=== PATIENT | male | born 1950 ===

== ENCOUNTER 2022-11-03 21:24 | Emergency (ER) | payer MEDICARE ==
--- OUTSIDE RECORDS SUMMARY | 2022-11-03 21:27 | XMS REPORT | Continuity of Care Document ---
:1950 Author Organization [facility] t Address [address] [place] [address]. [address] [place] [address] Care Team Providers Name Role Phone Pcp, Patient Does Not Have A Primary Care Physician [id number] MARY GOOD Attending Clinician Unavailable Mary Good MD Attending Clinician Doctor Unassigned, [place] Attending Clinician Unavailable MARY GOOD Admitting Clinician Unavailable Mary Good MD Admitting Clinician Payers Payer Name Policy Type Policy Number Effective Date Expiration Date S ource Problems Condition Condition Condition Status Onset Resolution Last Treating Co mments Source Name Details Category Date Date Treatment Clinician Date Perianal Perianal Disease Active Unive rs dermatitis dermatitis 8-10 it y of 00:00: [address] Prolapsed Prolapsed Disease Active Uni vers internal internal 6-01 [place], grade 3 s, grade 3 00 Me dical Branch Allergies, Adverse Reactions, Alerts Allergy Allergy Status Severity Reaction(s) Onset Inactive Treating Comm ents Source Name Type Date Date Clinician NO KNOWN Drug Active Univers ALLERGIE Class ity of S [facility] Social History Social Habit Start Date Stop Date Quantity Comments Source Gender identity Universit y of [facility] Sexual orientation Univer sity [facility] Alcohol intake 2022-10-30 2022-10-30 Lifetime University of 00:00:00 00:00:00 non-drinker [facility] (finding) [place] History of Social 2022-10-24 2022-10-24 Univers ity of function 00:00:00 00:00:00 [facility] Tobacco use and 2022-08-21 2022-08-21 Smokeless Universit y of exposure 00:00:00 00:00:00 tobacco non-user [facility] Sex Assigned At [birth year] Universit y of 00:00:00 00:00:00 [facility] Smoking Status Start Date Stop Date Source Never smoked tobacco [facility] Medications Ordered Filled Start Stop Current Ordering Indication Dosage Frequency Signature Comments Components Source Medication Medication Date Date Medication? Clinician (SIG) Name Name HYDROcodone 2022- No 1{tbl} 1 tablet, Univers -acetaminop 10-24 Oral, ity of hen (NORCO 16:45: 17:43 ONCE, 1 [place] 5) 5-325 mg 00 :00 dose, On Medi elsi tablet 1 Thu10/24/22 Branc h tablet at 1145, Routine, PACU HYDROcodone 2022- No 1{tbl} 1 tablet, Univers -acetaminop 10-24 Oral, ity of hen (NORCO 16:45: 17:43 ONCE, 1 Freddy as 5) 5-325 mg 00 :00 dose, On Medi elsi tablet 1 Thu10/24/22 Branc h tablet at 1145, Routine, PACU HYDROmorphO Yes .2mg 0.2 mg, Uni vers ne 8 Slow IV ity of (DILAUDID) 16:37: Push, [place] injection 20 Q5MIN PRN, Medi elsi 0.2 mg 10 doses, Branch Starting on Thu10/24/22 at 1137, Until Discontinu ed, Routine, Pain (scale 7-10), PACU
Us e approved by (Faculty): PACU USE -ANESTHESI A SERVICE-HY DROMORPHON E INJECTIONS FENTanyl PF Yes 25ug 25 mcg, Uni vers (SUBLIMAZE 10-24 Slow IV ity of (PF)) 16:37: Push, [place] injection 20 Q5MIN PRN, Medi elsi 25 mcg 4 doses, Branch Starting on Thu10/24/22 at 1137, Until Discontinu ed, Routine, Pain (scale 4-6), PACU ondansetron Yes 4mg 4 mg, Slow Univers (ZOFRAN 8- IV Push, ity of (PF)) 16:37: PRN, 1 [place] injection 4 20 dose, Medical mg Starting Branch on Thu10/24/22 at 1137, Until Discontinu ed, Routine, Nausea and Vomiting (N/V), PACU HYDROmorphO 2022- No .2mg 0.2 mg, [place] ne 10-24 Slow IV ity of (DILAUDID) 16:37: 21:32 Push, [place] injection 20 :57 Q5MIN PRN, Medi elsi 0.2 mg 10 doses, Branch Starting on Thu10/24/22 at 1137, Until Thu10/24/22 at 1632, Routine, Pain (scale 7-10), PACU
Us e approved by (Faculty): PACU USE -ANESTHESI A SERVICE-HY DROMORPHON E INJECTIONS FENTanyl PF 2022- No 25ug 25 mcg, [place] (SUBLIMAZE 10-24 Slow IV ity o f (PF)) 16:37: 21:32 Push, [place] injection 20 :57 Q5MIN PRN, Medi elsi 25 mcg 4 doses, Branch Starting on Thu10/24/22 at 1137, Until Thu10/24/22 at 1632, Routine, Pain (scale 4-6), PACU ondansetron 2022- No 4mg 4 mg, Slow Univers (ZOFRAN 10-24 IV Push, ity of (PF)) 16:37: 21:32 PRN, 1 [place] injection 4 20 :57 dose, Medical mg Starting Branch on Thu10/24/22 at 1137, Until Thu10/24/22 at 1632, Routine, Nausea and Vomiting (N/V), PACU lidocaine 2022-0 Yes PRN, Univers (XYLOCAINE) 10-24 Starting ity of 2 % jelly 16:08: on Fri [place] URO-JET 00 10/24/22 at [facility] 1108, Branch Until Discontinu ed, Routine, Intra-op lidocaine 2022-0 2023- No PRN, Univers (XYLOCAINE) 10-24 Starting ity of 2 % jelly 16:08: 21:32 on Fri [place] URO-JET 00 :57 10/24/22 at Medical 1108, Branch Until Thu10/24/22 at 1632, Routine, Intra-op bupivacaine 2023-0 Yes PRN, Univer s (preserv 8-04 Starting ity of free) 15:18: on Fri [place] (SENSORCAIN 00 10/24/22 at Med ical E MPF) 0.25 1018, Branch % (2.5 Intra-op mg/mL) 20 mL, BUPivacaine liposome (PF) (EXPAREL (PF)) 1.3 % (13.3 mg/mL) 266 mg bupivacaine 3-0 202- No PRN, Unive rs (preserv 8- 08-04 Starting ity of free) 15:18: 21:32 on Thu [place] (SENSORCAIN 00 :57 10/24/22 at Med ical E MPF) 0.25 1018, Branch % (2.5 Intra-op mg/mL) 20 mL, BUPivacaine liposome (PF) (EXPAREL (PF)) 1.3 % (13.3 mg/mL) 266 mg sodium 3-0 Yes PRN, Univers chloride 10-24 Starting ity of 0.9 % 15:12: on Thu [place] irrigation 00 10/24/22 at Medi elsi solution 1012, Branch Until Discontinu ed, Intra-op sodium 3-0 2022- No PRN, Univers chloride 10-24 Starting ity of 0.9 % 15:12: 21:32 on Thu [place] irrigation 00 :57 10/24/22 at Medi elsi solution 1012, Branch Until Thu10/24/22 at 1632, Intra-op LATANOPROST 2023-[address] in [place] OPHTHALMIC 8-04 each eye. ity of 14:32: [address] LATANOPROST 2023-[address] in [place] OPHTHALMIC 8-04 each eye. ity of 14:32: [address] LATANOPROST 2023-[address] in [place] OPHTHALMIC 8-04 each eye. ity of 14:32: [address] LATANOPROST 2023-[address] in [place] OPHTHALMIC 8-04 each eye. ity of 14:32: [address] LATANOPROST 2023-[address] in [place] OPHTHALMIC 8-04 each eye. ity of 14:32: [place] 57 Medical Branch lactated 2022- No 1000[facility] at [facility] 10-24 08-04 mL/hr, ity of infusion 13:30: 13:36 1,000 mL, Fred[place] as 1,000 mL 00 :00 IV Medical Infusion, Branch ONCE, 1 dose, On Thu10/24/22 at 0830, Routine, DSU Pre-op lactated 2022-0 2022- No 1000mL at 42 [facility] rs ringers IV 10-24-04 mL/hr, ity of infusion 13:30: 13:36 1,000 mL, [place] 1,000 mL 00 :00 IV Medical Infusion, Branch ONCE, 1 dose, On Thu10/24/22 at 0830, Routine, DSU Pre-op celecoxib 2022- No 200mg 200 mg, Uni vers (CELEBREX) 10-24 Oral, O.R. it y of capsule 200 13:21: 13:32 [place] mg 10 :00 ONCE, 1 Medical dose, Branch Starting on Thu10/24/22 at 0821, Until Thu10/24/22 at 0832, Routine, Pain, DSU Pre-op gabapentin 2022- No 600mg 600 mg, [place] (NEURONTIN) 10-24 Oral, O.R. i ty of capsule 600 13:21: 13:32 [place] 10 :00 ONCE, 1 Medical dose, Branch Starting on Thu10/24/22 at 0821, Until Thu10/24/22 at 0832, Routine, Surgery/Pr ocedure, DSU Pre-op acetaminoph 2022- No 1000mg 1,000 mg, Univers en 10-24 Oral, O.R. ity of (TYLENOL) 13:21: 13:32 [place] tablet 10 :00 ONCE, 1 Medical 1,000 mg dose, Branch Starting on Thu10/24/22 at 0821, Until Thu10/24/22 at 0832, Routine, Surgery / Procedure, DSU Pre-op celecoxib 2022- No 200mg 200 mg, Uni vers (CELEBREX) 10-24 Oral, O.R. it y of capsule 200 13:21: 13:32 [place] 10 :00 ONCE, 1 Medical dose, Branch Starting on Thu10/24/22 at 0821, Until Thu10/24/22 at 0832, Routine, Pain, DSU Pre-op gabapentin 2022- No 600mg 600 mg, [place] (NEURONTIN) 10-24 Oral, O.R. i ty of capsule 600 13:21: 13:32 [place] 10 :00 ONCE, 1 Medical dose, Branch Starting on Thu10/24/22 at 0821, Until Thu10/24/22 at 0832, Routine, Surgery/Pr ocedure, DSU Pre-op acetaminoph 2022- No 1000mg 1,000 mg, Univers en 10-24 Oral, O.R. ity of (TYLENOL) 13:21: 13:32 [place] tablet 10 :00 ONCE, 1 Medical 1,000 mg dose, Branch Starting on Thu10/24/22 at 0821, Until Thu10/24/22 at 0832, Routine, Surgery / Procedure, DSU Pre-op polyethylen 2022-0 Yes [id number] Take 1 Univers e glycol 8-04 packet ity of 3350 00:00: dissolved [place] (MIRALAX) 00 in 4-8 Medical 17 gram ounces Branch powder beverage. traMADoL 50 0 Yes [id number] 50mg Take 1 Univ ers mg tablet 8-04 tablet by ity o f 00:00: mouth [place] 00 every 8 Medical (eight) Branch hours as needed (pain) for up to 3 doses. Indication s: acute pain ibuprofen 2022-0 Yes [id number] 600mg Take 1 Univers 600 mg 8-04 tablet by ity of tablet 00:00: mouth [place] 00 every 6 Medical (six) Branch hours. polyethylen 2022-0 Yes [id number] Take 1 Univers e glycol 8-04 packet ity of 3350 00:00: dissolved [place] (MIRALAX) 00 in 4-8 Medical 17 gram ounces Branch powder beverage. ibuprofen 2022-0 Yes [id number] 600mg Take 1 Univers 600 mg 8-04 tablet by ity of tablet 00:00: mouth [place] 00 every 6 Medical (six) Branch hours. polyethylen 2022-0 Yes [id number] Take 1 Univers e glycol 8-04 packet ity of 3350 00:00: dissolved [place] (MIRALAX) 00 in 4-8 Medical 17 gram ounces Branch powder beverage. ibuprofen 2023-0 Yes [id number] 600mg Take 1 Univers 600 mg 8-04 tablet by ity of tablet 00:00: mouth [place] 00 every 6 Medical (six) Branch hours. polyethylen 3-0 Yes [id number] Take 1 Univers e glycol 8-04 packet ity of 3350 00:00: dissolved [place] (MIRALAX) 00 in 4-8 Medical 17 gram ounces Branch powder beverage. traMADoL 50 3-0 Yes [id number] 50mg Take 1 Univ ers mg tablet 8-04 tablet by ity o f 00:00: mouth [place] 00 every 8 Medical (eight) Branch hours as needed (pain) for up to 3 doses. Indication s: acute pain ibuprofen 3-0 Yes [id number] 600mg Take 1 Univers 600 mg 8-04 tablet by ity of tablet 00:00: mouth [place] 00 every 6 Medical (six) Branch hours. polyethylen 3-0 Yes [id number] Take 1 Univers e glycol 8-04 packet ity of 3350 00:00: dissolved [place] (MIRALAX) 00 in 4-8 Medical 17 gram ounces Branch powder beverage. traMADoL 50 3-0 Yes [id number] 50mg Take 1 Univ ers mg tablet 8-04 tablet by ity o f 00:00: mouth [place] 00 every 8 Medical (eight) Branch hours as needed (pain) for up to 3 doses. Indication s: acute pain ibuprofen 2023-0 Yes [id number] 600mg Take 1 Univers 600 mg 8-04 tablet by ity of tablet 00:00: mouth [place] 00 every 6 Medical (six) Branch hours. acetaminoph 2023-0 2023- Yes [id number] 975mg Take 3 Univers en 325 mg 8-04 08-20 tablets by ity of tablet 00:00: 04:59 mouth [place] 00 :00 every 8 Medical (eight) Branch hours for 15 days. acetaminoph 2023-0 2023- Yes [id number] 975mg Take 3 Univers en 325 mg 8-04 08-20 tablets by ity of tablet 00:00: 04:59 mouth [place] 00 :00 every 8 Medical (eight) Branch hours for 15 days. acetaminoph 2022-0 202- Yes [id number] 975mg Take 3 Univers en 325 mg 8 08-20 tablets by ity of tablet 00:00: 04:59 mouth [place] 00 :00 every 8 Medical (eight) Branch hours for 15 days. acetaminoph 3-0 2023- Yes [id number] 975mg Take 3 Univers en 325 mg 8 08-20 tablets by ity of tablet 00:00: 04:59 mouth [place] 00 :00 every 8 Medical (eight) Branch hours for 15 days. acetaminoph 2022-0 2022- Yes [id number] 975mg Take 3 Univers en 325 mg 8 08-20 tablets by ity of tablet 00:00: 04:59 mouth [place] 00 :00 every 8 Medical (eight) Branch hours for 15 days. traMADoL 50 2022-0 2023- No [id number] 50mg Take 1 Uni vers mg tablet 10-24 08-10 tablet by ity of 00:00: 00:00 mouth [place] 00 :00 every 8 Medical (eight) Branch hours as needed (pain) for up to 3 doses. Indication s: acute pain traMADoL 50 3-0 2023- No [id number] 50mg Take 1 Uni vers mg tablet 10-24 08-10 tablet by ity of 00:00: 00:00 mouth [place] 00 :00 every 8 Medical (eight) Branch hours as needed (pain) for up to 3 doses. Indication s: acute pain LATANOPROST 2022-[address] in [place] OPHTHALMIC 6-01 each eye. ity of 10:04: [place] [address] Medical Branch LATANOPROST 3-[address] in [place] OPHTHALMIC 6-01 each eye. ity of 10:04: [address] Branch LATANOPROST 2023-[address] in [place] OPHTHALMIC 6-01 each eye. ity of 10:04: [address] Branch LATANOPROST 2023-[address] in [place] OPHTHALMIC 6-01 each eye. ity of 10:04: [place] [address] Medical Branch LATANOPROST 2023-[address] in [place] OPHTHALMIC 6-01 each eye. ity of 10:04: [address] Vital Signs Vital Name Observation Time Observation Value Comments Source Systolic blood 2022-10-30 13:13:00 151 mm[Hg] Univer sity of pressure [place] [facility] Diastolic blood 2022-10-30 13:13:00 86 mm[Hg] Unive rsity of pressure [place] [facility] Heart rate 2022-10-30 13:13:00 67 /min Universi ty of [place] [facility] Body temperature 2022-10-30 13:12:00 36.56 Noemi Univ ersity of [facility] Branch Respiratory rate 2022-10-30 13:12:00 18 /min Univ ersity of [place] [facility] Body height 2022-10-30 13:12:00 170.2 cm Universi ty of [place] [facility] Body weight 2022-10-30 13:12:00 70.761 kg Universi ty of [place] [facility] BMI 2022-10-30 13:12:00 24.43 kg/m2 Universi ty of [place] [facility] [place] Oxygen saturation in 2022-10-30 13:12:00 97 /min University of Arterial blood by [facility] Pulse oximetry Branch Heart rate 2022-10-24 18:30:00 89 /min Universi ty of [place] [facility] Oxygen saturation in 2022-10-24 18:30:00 96 /min University of Arterial blood by [facility] Pulse oximetry Branch Respiratory rate 2022-10-24 18:25:00 22 /min Univ ersity of [place] [facility] Systolic blood 2022-10-24 18:20:00 152 mm[Hg] Univer sity of pressure [place] [facility] Diastolic blood 2022-10-24 18:20:00 77 mm[Hg] Unive rsity of pressure [place] [facility] Body temperature 2022-10-24 16:30:00 36.11 Noemi Univ ersity of [place] [facility] Body height 2022-10-21 14:45:00 170.2 cm Universi ty of [place] [facility] Body weight 2022-10-21 14:45:00 70.761 kg Universi ty of [place] [facility] BMI 2022-10-21 14:45:00 24.43 kg/m2 Universi ty of [place] [facility] Systolic blood 2022-10-24 13:27:00 135 mm[Hg] Univer sity of pressure [place] [facility] Diastolic blood 2022-10-24 13:27:00 89 mm[Hg] Unive rsity of pressure [place] [facility] Heart rate 2022-10-24 13:27:00 69 /min Universi ty of [place] [facility] Body temperature 2022-10-24 13:27:00 36.67 Noemi Univ ersity of [place] [facility] Respiratory rate 2022-10-24 13:27:00 18 /min Univ ersity of [place] [facility] Oxygen saturation in 2022-10-24 13:27:00 97 /min University of Arterial blood by [facility] Pulse oximetry Branch BMI 2022-10-21 14:45:00 24.43 kg/m2 Universi ty of [place] [facility] Body height 2022-10-21 14:45:00 170.2 cm Universi ty of [place] [facility] Body weight 2022-10-21 14:45:00 70.761 kg Universi ty of [place] [facility] Systolic blood 2022-10-16 13:09:00 137 mm[Hg] Univer sity of pressure [facility] Branch Diastolic blood 2022-10-16 13:09:00 84 mm[Hg] Unive rsity of pressure [place] [facility] Heart rate 2022-10-16 13:09:00 61 /min Universi ty of [place] [facility] Body temperature 2022-10-16 13:08:00 36.56 Noemi Univ ersity of [place] [facility] Respiratory rate 2022-10-16 13:08:00 18 /min Univ ersity of [place] [facility] Body weight 2022-10-16 13:08:00 70.761 kg Universi ty of [place] [facility] BMI 2022-10-16 13:08:00 24.43 kg/m2 Universi ty of [place] [facility] Oxygen saturation in 2022-10-16 13:08:00 99 /min University of Arterial blood by [facility] Pulse oximetry Branch Procedures Procedure Date / Time Performing Clinician Source Performed DOPPLER GUIDED 2022-10-24 14:18:00 Mary Good [place] HEMORRHOIDPEXY Medical Branch DAY SURGERY - ADC 2022-10-24 05:01:00 Doctor Unassigned, [facility] [place] Medical Branch Encounters Start End Encounter Admission Attending Care Care Encounter Source Date/Time Date/Time Type Type Clinicians Facility Department ID 2022-10-30 2022-10-30 Office KALEY Good TERESO [id number] Univers 08:15:00 08:43:02 Visit Mary GARCIA [id number] it y of [place] [id number] [facility] 408 Branch 2022-10-30 2022-10-30 [facility] [id number] Univers 08:15:00 08:43:[address] [facility] 2022-10-24 2022-10-24 [facility] [id number] Univers 08:15:00 13:40:[address] [facility] 2022-10-24 2022-10-24 [facility] [id number] Univers 08:15:00 13:40:00 Encounter Mary BARON [id number] ity [place] [id number] [facility] 071 Branch 2022-10-24 2022-10-24 Surgery [facility] [id number] Univers 09:15:00 11:15:00 Mary BARON [id number] i ty [place] [id number] [facility] 020 Branch 2022-10-24 2022-10-24 Orders Doctor ORR [id number] Univers 00:00:00 00:00:00 Only Unassigned, ANASTACIO [id number] ity of [place] [facility] 4.2.7.2.686 [place] as [id number] [facility] 009 Branch 2022-10-16 2022-10-16 [facility] [id number] Univers 08:15:00 09:05:[address] [facility] 2022-10-16 2022-10-16 Office [facility] [id number] Univers 08:15:00 09:05:28 Visit Mary JOSE [id number] it y of [id number] [id number] [address] 2022-10-07 2022-10-07 Telephone Dmitry [facility] [id number] Univers 00:00:00 00:00:00 Mary GARCIA [id number] it y of [id number] [id number] [address] 2022-08-26 2022-08-26 Telephone Dmitry [facility] [[email or web address]] [id number] Univers 00:00:00 00:00:00 Mary DRAPER [id number] i ty [place] [id number] [id number] [place] dical [address] 2022-08-21 2022-08-21 Outpatient R DMITRY [facility] [id number] Univers 10:15:00 10:51:09 MARY benson of [facility] Results This patient has no known results. History and Physical Notes Date/Time Note Provider Source 2022-10-24 08:28:27-00:00 Formatting of this note migh t be different from the original. [facility] [[email or web address] - [facility] Updated H&P: 10/24/2022 Pt was seen and evaluated in holding with Dr. Good. There have been no changes to pt's history, physical exam or ROS since patient was seen in clinic on 10/16/[address] Good. Please see below for full details of H&P. - NPO since midnight - Risks, benefits and altern atives discussed with patient and he wished to proceed with procedure. - Consent signed. - To OR today for THD procedure Mehreen Chacon MD General Surgery, PGY-2 Electronically signed by Mary Good MD at 9:16 AM CDT Associated attestation - Mary Good MD - 06/2022 9:16 AM CDT ATTESTATION: After reviewing the details of the history, exam, and data with the resident, I personally examined the patient with Dr. Chacon. I agree with the resident's note as written. I actively participated in th e decision making process. Vinny lópez see the resident's note for additional details. All risks benefits and alter natives discussed with patient, including the risk of bleeding, infection, damage to surrounding tissues and need for more invasive measures to address these complications, and he is amenable to proceed with procedure. Mary Good MD 10/24/2022 9:16 AM Colon and Rectal Surgery Source Note - Mary Good MD - 10/16/2022 8:1 5 AM CDT Formatting of this note is different from the or iginal. COLORECTAL SURGERY HISTORY AND PHYSICAL NOTE REASON FOR REFERRAL: hemorrhoidal bleeding Cc: Chief Complaint Patient presents with F/U SUBJECTIVE: Nadia Hogue is a 72 year old ma bernadine. PMH non contributory. 09/2022: Mr Hogue is here with i mprovement in hemorrhoidal bleeding and prolapse after a 3 week HCT suppository treatment. However, per , he is still randomly bleeding and straining his clothes and furn iture. He is still wearing p ads. He would like to escalate hemorrhoidal bleeding management given suppositories are extremely expensive and not covered by insurance, so repeated treatments are not an option. 08/2022: Here for rectal bleeding. Bi weekly bleeding, bright blood per rectum, not associated with significant pain, but has h/o intermittent muscle spasms. Sitz baths helped relief spasms. This occur mainly at night. Infrequent in nautre. Does not report frequent constipation, but will intermittently have frequent bowel movements and frequent wiping will lead to bleeding. Has 3-5 soft Bms per day. Reports occ asional prolapsing rectal ti ssue that he has to push back in. Reports low fiber diet. Does not consume high amount of water, drinks coffee and Dr. Pepper. Last colonoscopy: 2021- patient reported benign polyps - does not have report Fam or personal h/o CRC: none Allergies Nadia has No Known Allergies. Medications Outpatient Medications Prior to Visit Medication Sig Dispense Refill LATANOPROST OPHTHALMIC Place in each eye. No facility-administered medications prior to vi sit. Histories No past medical history on file. Past Surgical History: Procedure Laterality Date PROSTATE SURGERY Social History Socioeconomic History Marital status: Tobacco Use Smoking status: Never Smokeless tobacco: Never Substance and Sexual Activity Alcohol use: Never Drug use: Never No family history on file. Review of Systems Review of Systems Constitutional: Negative. HENT: Negative. Eyes: Negative. Respiratory: Negative. Cardiovascular: Negative. Gastrointestinal: As above Genitourinary: Negative. Musculoskeletal: Negative. Skin: Negative. Neurological: Negative. Psychiatric/Behavioral: Negative. Endocrine: Negative Physical Exam BP 137/84 | Pulse 61 | Temp 36.6 ?C (97.8 ?F) | Resp 18 | Wt 70.8 kg (156 lb) | SpO2 99% | BMI 24.43 kg/m? Physical Exam Vitals signs reviewed. Constitutional: Appearance: Normal appearance. Cardiovascular: Rate and Rhythm: Normal rate. Pulmonary: Effort: Pulmonary effort is normal. Abdominal: General: Abdomen is flat. Musculoskeletal: Normal range of motion. Skin:General: Skin is warm and dry. Digital Rectal Exam and Anoscopy 08/2022 Perineal exam:normal Perineal skin: hemorrhoids, small, right posteri or, non thrombosed Anal wink: present Digital rectal exam: no fiss ures, normal anal sphincter tone, and prostate firm, nontender, without nodules or enlargement and large internal hemorrhoids, left lateral prolapsing Rectocele : absent Stenosis : absent Anoscopy: COLORECTAL ANOSCOPY: Left Lateral Inte rnal Hemorrhoid: grade III Mass: No masses Assessment/Plan Nadia Hogue is a 72 yea r old male who presented for prolapsing Grade 3 left lateral internal hemorrhoid associated with bleeding. Has had mild improvement with HCT suppository, but would like to pr oceed with THD for definitive elimination of ble eding issues. I explained the THD procedur e to the patient, including using a doppler to guide our hemorrhoidal vessel ligation and the use of a pexy suture to return the mucosa to its place in the anorectal canal. A ll risks benefits and altern atives discussed with patient, including the risk of bleeding, infection, damage to surrounding tissues and need for more invasive measures to address these complications. I explained that pressure like discomfort for +/- 1 weeks is the most common side effect of this procedure, as well as my recommendation to stay on Miralax post op for 1-2 weeks to avoid straining. I expl ained there is a 10% recurre nce risk at 1 year post op given we are not cutting hemorrhoids out. He is amenable to proceed with procedure. I spent 25 minutes of time, independent of resident or medical student time spent during the entirety of this appointment, dedicated to: PreCharting (eg, review of tests, notes, etc.), Counseling and educating the patient/family/caregiver, and Documenting clinical information in the electronic or other health record. Mary Good MD 10/16/2022 10:28 AM Colon and Rectal Surgery Electronically signed by Mary Good MD at 10:28 AM CDT Notes Date/Time Note Provider Source 2022-10-23 Formatting of this note might be differe nt from the original. Alisson Maher RN [facility] 12:28:25-00:00 Arrival time given for 3 at 0800. No reported change in health condition since pre-op screening call. No significant medical visits noted in chart review notes or reported by patient. Electronically signed by Alisson Maher RN a t 10/23/2022 12:28 PM CDT 2022-10-21 [facility] 09:57:19-00:00 Images from the original note were not included. Your upcoming procedure is a t [facility] on 10/24/22. The address is [address] [place] [address], [id number]The nursing staff at [facility] will call you the workday before your procedure to let you kn ow what time to arrive. When you arrive, please go inside and sign in at the desk. Please note: You may not tra shania home alone after your procedure and that includes in a taxi or by bus. We must speak to your Responsible Adult (who will be picking you up) the morning of your procedure, before the start of your pr ocedure. This person must be an adult over the age of 18 years of age. Maintain a clear liquid diet the entire day before your procedure. Do not drink anything containing red, blue, or purple dyes. Follow the instructions of your bowel prep as directed by you physician. Yo u may also take your medicat ions the morning of your procedure with a sip of water as directed by physician. Anticoagulants will be per p hysician Guidance. Medication Note(s)/Instructions: N/A Both patient and person acco mpanying and/or picking patient up must be able to wear a mask and be without symptoms of COVID 19. Pending screening, a COVID t est may be required. If a patient tests positive, their cases are cancelled and/or rescheduled. COVID NOTE: Denies COVID symptoms or exposure, no testing required. Additional questions, concerns, requests: Patient verbalized understan ding of pre-op instructions and voiced no further questions at this time. "
[2022-11-03] MEDS ORDERED: MORPHINE 4 MG/ML SYR ONE (22:13)
[2022-11-03] MEDS ORDERED: Ringers Lactate 1,000 ML IV ONE (22:13)
[2022-11-03] MEDS ORDERED: ONDANSETRON 4 MG/2 ML VIAL ONE (22:13)
[2022-11-03 22:22] LABS: Absolute Lymphocytes (CBC) 2.1 K/uL (0.7-4.9); Hematocrit 36.3 % (39.6-49.0); Lymphocytes % 29.2 % (15.3-44.8); MCV 93.3 fL (80-100); MPV 7.8 fL (7.6-11.3); Platelets 290 thou/uL (152-406)
[2022-11-03 22:36] LABS: ALT/SGPT 21 U/L (16-61); AST/SGOT 13 U/L (15-37); Albumin 3.1 g/dL (3.4-5.0); Alkaline Phosphatase 85 U/L (45-117); BUN Blood Urea Nitrogen 21 mg/dL (7-18); Bicarbonate 28 mEq/L (21-32); Bilirubin Total 0.2 mg/dL (0.2-1.0); Glomerular Filtration Rate 49 ml/min (=/>90); Glucose Level 111 mg/dL (74-106); Potassium 4.1 mEq/L (3.5-5.1); Protein, Total 6.4 g/dL (6.4-8.2); Sodium Level 138 mEq/L (136-145)
[2022-11-03 22:49] LABS: Bilirubin Direct < 0.1 mg/dL (0-0.2); Bilirubin Indirect, Calculated ND mg/dL (0.2-0.8)
--- NOTE | 2022-11-03 23:35 | ER ---
Nurse's Notes [facility] [place], [place] Name: Madhu Goncalves Age: 72 yrs Sex: Male : 1950 Arrival Date: 11/03/2022 Time: 21:24 Bed 7 Private MD: Diagnosis: Acute rectal bleeding, bleeding from the site of hemorrhoidectomy Presentation: 11/03 21:29 Chief complaint: Patient states: rectal bleeding began 45 minutes [employer] recent hemorrhoid kl surgery {10/17} reports spontaneous bleeding this pm approx 1 cup. Coronavirus screen: Vaccine status: Patient reports receiving the 2nd dose of the covid vaccine. Ebola Screen: Patient negative for fever greater than or equal to 101.5 degrees Fahrenheit, and additional compatible Ebola Virus Disease symptoms. Initial Sepsis Screen: Does the patient meet any 2 criteria? No. Patient's initial sepsis screen is negative. Does the patient have a suspected source of infection? No. Patient's initial sepsis screen is negative. Risk Assessment: Do you want to hurt yourself or someone else? Patient reports no desire to harm self or others. 21:29 [facility]29 Acuity: KALYAN 3 kl Triage Assessment: 21:32 General: Appears uncomfortable, Behavior is calm, cooperative. Pain: Complains of pain kl in gluteal cleft Pain currently is 3 out of 10 on a pain scale. EENT: No deficits noted. Neuro: No deficits noted. Cardiovascular: No deficits noted. Respiratory: No deficits noted. GI: No deficits noted. No signs and/or symptoms were reported involving the gastrointestinal system. : No deficits noted. No signs and/or symptoms were reported regarding the genitourinary system. Derm: bleeding from hemorrhoid surgical site. Historical: - Allergies: 21:32 No Known Allergies; kl - Home Meds: 21:32 None [Active]; kl - PMHx: 21:32 None; kl - PSHx: 21:32 Hemorrhoidectomy; kl - Immunization history:: Adult Immunizations up to date. - Social history:: Smoking status: Patient denies any tobacco usage or history of. - Family history:: not pertinent. Screenin:50 [facility] ED Fall Risk Assessment (Adult) History of falling in the last 3 months, kl including since admission No falls in past 3 months (0 pts) Confusion or Disorientation No (0 pts) Intoxicated or Sedated No (0 pts) Impaired Gait No (0 pts) Mobility Assist Device Used No (0 pt) Altered Elimination No (0 pt) Score/Fall Risk Level 0 - 2 = Low Risk Oriented to surroundings, Maintained a safe environment. Abuse screen: Denies threats or abuse. Nutritional screening: No deficits noted. Tuberculosis screening: No symptoms or risk factors identified. Assessment: 21:50 Reassessment: see triage assessment. 22:10 Reassessment: rectal bleeding noted 4x4,s placed between buttocks adult brief in place kl tolerated well. 22:29 Reassessment: [facility] Transfer Center called, Dr. Mckeon consulted with Dr. Nunez and vc1 has agreed to accept the pt. Waiting on acceptance from Internalist. Vital Signs: 21:29 BP 140 / 95; Pulse 80; Resp 18; Temp 98.7(O); Pulse Ox 97% on R/A; Weight 70.76 kg (M); kl Height 5 ft. 7 in. ; Pain 3/10; 21:53 BP 137 / 86; Pulse Ox 96% on R/A; kl 11/04 00:07 BP 137 / 79; Pulse 69; Resp 16; Pulse Ox 98% ; 11/03 21:29 Body Mass Index 24.43 (70.76 kg, 170.18 cm) 11/03 21:29 Pain Scale: Adult ED Course: 11/03 21:27 Patient arrived in ED. rv1 21:32 Triage completed. kl 21:35 Shan Nunez MD is Attending Physician. sp4 21:49 No provider procedures requiring assistance completed. Inserted saline lock: 20 gauge kl in right antecubital area, using aseptic technique. Blood collected. 21:49 Basic Metabolic Panel Sent. kl 21:49 CBC with Diff Sent. kl 21:49 LFT's Sent. kl 21:49 PT-INR Sent. kl 21:51 Patient has correct armband on for positive identification. Bed in low position. Call kl light in reach. Side rails up X2. Door closed. Noise minimized. Warm blanket given. 22:06 Initiated transfer with Manny at [facility]. rv1 23:24 Pt accepted to [facility] by Dr. Wakefield. rv1 23:25 CT Abd/Pelvis - IV Contrast Only In Process Unspecified. EDMS 23:57 SARS RAPID Sent. 11/04 00:07 Patient transferred, IV remains in place. kl Administered Medications: 11/03 22:05 Drug: morphine IVP or IV 4 mg Route: IVP; Infused Over: 4 mins; Site: right antecubital; 22:41 Follow up: Response: No adverse reaction; Marked relief of symptoms kl 22:11 Drug: Ondansetron IVP 4 mg Route: IVP; Site: right antecubital; 22:41 Follow up: Response: No adverse reaction; Marked relief of symptoms kl 22:11 Drug: Lactated Ringers Solution IV 1000 ml Route: IV; Rate: 150 ml/hr; Site: right kl antecubital; 23:50 Drug: Ondansetron IVP 4 mg Route: IVP; Site: right antecubital; 11/04 00:06 Follow up: Response: No adverse reaction; Marked relief of symptoms 11/03 23:56 Drug: morphine IVP or IV 4 mg Route: IVP; Infused Over: 4 mins; Site: right antecubital; 11/04 00:06 Follow up: Response: No adverse reaction; Marked relief of symptoms Medication: 11/03 21:52 VIS not applicable for this client. Outcome: 23:35 ER care complete, transfer ordered by MD. solorio 11/04 00:07 Transferred by ground EMS to [facility], Transfer form kl completed. X-rays sent w/ patient. Condition: stable Discharge instructions given to patient, family, Instructed on the need for transfer, Demonstrated understanding of instructions. 00:08 Patient left the ED. Signatures: Dispatcher [employer] EDMS Yanira Saldaña RN RN kl Calcote, Vanessa, RN RN 1 Nia Mcneil Sergey, MD MD sp4
--- NOTE | 2022-11-03 23:35 | EDPHYS ---
Physician Documentation [facility] Name: Madhu Goncalves Age: 72 yrs Sex: Male : 1950 Arrival Date: 11/03/2022 Time: 21:24 Bed 7 Private MD: ED Physician Shan Nunez HPI: 11/03 21:36 This 72 yrs old White Male presents to ER via EMS with complaints of Bleeding sp4 hemorrhoids.. 21:36 Very pleasant 72-year-old male with history of hemorrhoidectomy at [facility] in [place] on sp4 10/16/2022 presents with EMS for acute bleeding from the anus starting today while he went to the bathroom. Patient reports active bleeding. He is wearing depends. Dr. Dmitry SALAS at [phone] is a colorectal surgeon who performed the surgery. . Historical: - Allergies: 21:32 No Known Allergies; kl - Home Meds: 21:32 None [Active]; kl - PMHx: 21:32 None; kl - PSHx: 21:32 Hemorrhoidectomy; kl - Immunization history:: Adult Immunizations up to date. - Social history:: Smoking status: Patient denies any tobacco usage or history of. - Family history:: not pertinent. ROS: 23:24 Constitutional: Negative for fever, chills, and weight loss, Abdomen/GI: Negative for sp4 abdominal pain, nausea, vomiting, diarrhea, and constipation, positive for anal bleeding 23:24 All other systems are negative. Exam: 23:24 Constitutional: This is a well developed, well nourished patient who is awake, alert, sp4 and in no acute distress. Head/Face: Normocephalic, atraumatic. Eyes: Pupils equal round and reactive to light, extra-ocular motions intact. Lids and lashes normal. Conjunctiva and sclera are not injected. Cornea within normal limits. Periorbital areas with no swelling, redness, or edema. ENT: Nares patent. No nasal discharge, no septal abnormalities noted. Tympanic membranes are normal and external auditory canals are clear. Oropharynx with no redness, swelling, or masses, exudates, or evidence of obstruction, uvula midline. Mucous membranes moist. Neck: Trachea midline, no thyromegaly or masses palpated, and no cervical lymphadenopathy. Supple, full range of motion without nuchal rigidity, or vertebral point tenderness. Chest/axilla: Normal chest wall appearance and motion. Nontender with no deformity. No lesions are appreciated. Cardiovascular: Regular rate and rhythm with a normal S1 and S2. No gallops, murmurs, or rubs. Normal PMI, no JVD. No pulse deficits. Respiratory: Lungs have equal breath sounds bilaterally, clear to auscultation and percussion. No rales, rhonchi or wheezes noted. No increased work of breathing, no retractions or nasal flaring. Abdomen/GI: Soft, non-tender, with normal bowel sounds. No distension or tympany. No guarding or rebound. No evidence of tenderness throughout. Digital rectal exam reveals active moderate bleeding coming from rectum, no anal fissures, no anal fistulas, no signs of external hemorrhoid, no sign of rectal mass, there is bright red bleeding that is active. There is anal tenderness without sign of abscess. Back: No spinal tenderness. No costovertebral tenderness. Male : Normal genitalia with no discharge or lesions. Skin: Warm, dry with normal turgor. Normal color with no rashes, no lesions, and no evidence of cellulitis. MS/ Extremity: Pulses equal, no cyanosis. Neurovascular intact. Full, normal range of motion. Neuro: Awake and alert, GCS 15, oriented to person, place, time, and situation. Cranial nerves II-XII grossly intact. Motor strength 5/5 in all extremities. Sensory grossly intact. Psych: Awake, alert, with orientation to person, place and time. Behavior, mood, and affect are within normal limits Vital Signs: 21:29 BP 140 / 95; Pulse 80; Resp 18; Temp 98.7(O); Pulse Ox 97% on R/A; Weight 70.76 kg (M); Height 5 ft. 7 in. ; Pain 3/10; 21:53 BP 137 / 86; Pulse Ox 96% on R/A; 11/04 00:07 BP 137 / 79; Pulse 69; Resp 16; Pulse Ox 98% ; 11/03 21:29 Body Mass Index 24.43 (70.76 kg, 170.18 cm) 11/03 21:29 Pain Scale: Adult MDM: 11/03 22:03 Patient medically screened. sp4 23:24 Differential Diagnosis Bright red bleeding, colonic bleeding, diverticular bleed, sp4 hemorrhoidal bleed, internal hemorrhoid. Data reviewed: vital signs. Consideration of Admission/Observation Escalation of care including admission/observation considered. Management of patient was discussed with the following: Associate Professor Of Art: General surgeon at [facility] Dr. Mckeon, also discussed with general surgeon at [facility] in [place] Dr. Ashu Sebastian. ED course: Patient has manifested with active rectal bleeding that is bright red, and is mild to moderate but persistent. Vital signs are stable, hemoglobin is stable, blood transfusion not indicated at this time. Patient however warrants transfer to [facility] for further assessment probably there is a dehiscence of postoperative hemorrhoidectomy site or recurrent hemorrhoidal bleed. Patient is stable for ground transport. 11/04 00:40 ED course: CT abdomen / pelvis with IV contrast - COMPARISON: None available for sp4 comparison. FINDINGS: Lung bases: Atelectatic changes in the lung bases. Liver: Tiny hepatic cyst. Gallbladder and biliary system: Unremarkable Pancreas: Unremarkable Spleen: Unremarkable Adrenals: Unremarkable Kidneys: Normal renal cortical enhancement. No calculi. No hydronephrosis. GI: Sigmoid diverticulosis with no evidence of diverticulitis. Mucosal thickening along the distal rectosigmoid and rectum which may represent proctocolitis. Heterogeneous appearance of the rectal thickening and perirectal stranding. Rectal mass cannot be excluded. Direct visualization recommended. Appendix: No findings to suggest acute appendicitis. Urinary bladder: Unremarkable Reproductive: Enlarged prostate with calcifications. Lymph nodes: No pathologically enlarged lymph nodes. Peritoneum: No focal fluid collection. No free air. Vessels: No abdominal aortic aneurysm. Abdominal wall: Unremarkable Bones: Unremarkable IMPRESSION: 1. Mucosal thickening along the distal rectosigmoid and rectum which may represent proctocolitis. Heterogeneous appearance of the rectal thickening and perirectal stranding. Rectal mass cannot be excluded. Direct visualization recommended. 2. Sigmoid diverticulosis with no evidence of diverticulitis. 3. Enlarged prostate with calcifications. Electronically signed by: Shankar Henry MD 11/03/2022 11:42 PM C. 11/03 21:35 Order name: Basic Metabolic Panel; Complete Time: 23:02 sp4 11/03 23:03 Interpretation: Within normal limits: GFR 49; CRE 1.52. 4 11/03 21:35 Order name: CBC with Diff; Complete Time: 22:30 sp4 11/03 21:35 Order name: LFT's; Complete Time: 23:02 sp4 11/03 21:35 Order name: PT-INR; Complete Time: 23:02 sp4 11/03 21:35 Order name: Type And Screen; Complete Time: 23:44 sp4 11/03 23:44 Order name: SARS RAPID sp4 11/03 22:18 Order name: CT Abd/Pelvis - IV Contrast Only sp4 11/03 21:35 Order name: Cardiac monitoring; Complete Time: 21:49 sp4 11/03 21:35 Order name: IV Saline Lock; Complete Time: 21:49 sp4 11/03 21:35 Order name: Labs collected and sent; Complete Time: 21:49 sp4 11/03 21:35 Order name: O2 Per Protocol; Complete Time: 23:39 sp4 11/03 21:35 Order name: O2 Sat Monitoring; Complete Time: 23:39 sp4 11/03 23:52 Order name: NPO sp4 Administered Medications: 11/03 22:05 Drug: morphine IVP or IV 4 mg Route: IVP; Infused Over: 4 mins; Site: right antecubital;kl 22:41 Follow up: Response: No adverse reaction; Marked relief of symptoms kl 22:11 Drug: Ondansetron IVP 4 mg Route: IVP; Site: right antecubital; kl 22:41 Follow up: Response: No adverse reaction; Marked relief of symptoms kl 22:11 Drug: Lactated Ringers Solution IV 1000 ml Route: IV; Rate: 150 ml/hr; Site: right kl antecubital; 23:50 Drug: Ondansetron IVP 4 mg Route: IVP; Site: right antecubital; 11/04 00:06 Follow up: Response: No adverse reaction; Marked relief of symptoms 11/03 23:56 Drug: morphine IVP or IV 4 mg Route: IVP; Infused Over: 4 mins; Site: right antecubital; 11/04 00:06 Follow up: Response: No adverse reaction; Marked relief of symptoms kl Disposition Summary: 11/03/22 23:35 Transfer Ordered Transfer Location: [facility] sp4 Reason: Higher level of care sp4 Condition: Stable sp4 Problem: new sp4 Symptoms: have improved sp4 Accepting Physician: Ashu MORALES in [place](11/04/22 00:08) ankita Diagnosis - Acute rectal bleeding, bleeding from the site of hemorrhoidectomy sp4 Discharge Instructions: - Discharge Summary Sheet rv1 Forms: - SBAR form rv1 - Medication Reconciliation Form sp4 Signatures: Dispatcher [employer] Yanira Reyes RN RN Shan Hoover MD MD sp4 Corrections: (The following items were deleted from the chart) 11/03 23:03 23:02 Within normal limits. sp4 sp4 11/04 00:08 11/03 23:35 Person Carito SALAS [place]SHERICE in [place] sp4
[2022-11-04] MEDS ORDERED: ONDANSETRON 4 MG/2 ML VIAL ONE (00:02)
[2022-11-04] MEDS ORDERED: MORPHINE 4 MG/ML SYR ONE (00:02)
[2022-11-04 00:35] LABS: SARS-CoV-2 Antigen Rapid Res Negative (Negative)
[2022-11-04 00:45] VITALS: TEMP 98.7
[2022-11-04 00:47] VITALS: BP 137/79; O2SAT 98
--- NOTE | 2022-11-04 13:44 | RAD REPORT ---
EXAM DESCRIPTION: CT - Abdomen Pelvis W Contrast - 11/04/2022 6:46 am CLINICAL HISTORY: Rectal bleeding TECHNIQUE: Contiguous axial images obtained through the abdomen and pelvis following the uneventful administration of IV contrast. Coronal and sagittal reformatted images were provided. This exam was performed according to our departmental dose-optimization program, which includes autom ated exposure control, adjustment of the mA and/or kV according to patient size and/or use of iterati ve reconstruction technique. COMPARISON: None available for comparison. FINDINGS: Lung bases: Atelectatic changes in the lung bases. Liver: Tiny hepatic cyst. Gallbladder and biliary system: Unremarkable Pancreas: Unremarkable Spleen: Unremarkable Adrenals: Unremarkable Kidneys: Normal renal cortical enhancement. No calculi. No hydronephrosis. GI: Sigmoid diverticulosis with no evidence of diverticulitis. Mucosal thickening along the distal rectosigmoid and rectum which may represent proctocolitis. Heterogeneous appearance of the rectal thickening and perirectal stranding. Rectal mass cannot be exc luded. Direct visualization recommended. Appendix: No findings to suggest acute appendicitis. Urinary bladder: Unremarkable Reproductive: Enlarged prostate with calcifications. Lymph nodes: No pathologically enlarged lymph nodes. Peritoneum: No focal fluid collection. No free air. Vessels: No abdominal aortic aneurysm. Abdominal wall: Unremarkable Bones: Unremarkable IMPRESSION: 1. Mucosal thickening along the distal rectosigmoid and rectum which may represent pro ctocolitis. Heterogeneous appearance of the rectal thickening and perirectal stranding. Rectal mass c annot be excluded. Direct visualization recommended. 2. Sigmoid diverticulosis with no evidence of diverticulitis. 3. Enlarged prostate with calcifications. Electronically signed by: Shankar Henry MD 11/03/2022 11:42 PM CDT Due to temporary technical issues with the PACS/Fluency reporting system, reports are being signed by the in house radiologists without review as a courtesy to insure prompt reporting. The interpreting radiologist is fully responsible for the content of the report.
== END 2022-11-04 00:08 | disposition short-term general hospital (02) ==
LOC: ER 21:24
DX: K62.5 Hemorrhage of anus and rectum (principal); Z98.890 Other specified postprocedural states; Z20.822 Contact with and (suspected) exposure to COVID-19
CPT/HCPCS: 85025; 80048; 36415; 86900; 86850; 85610; 86901; 80076; 74177; 96375; 96374; 99285; 87811; Q9967; J2405 ×2; J7120